=== PATIENT | female | born 1985 | race Caucasian/White ===

== ENCOUNTER 2020-11-02 01:22 | Emergency (ER) | payer SELFPAY ==
[~2020-11-02] VITALS: Ht 167.6 cm; Wt 62.6 kg
[2020-11-02 01:24] VITALS: BP 110/73
--- NOTE | 2020-11-02 01:33 | NUR ---
35 YO F BIB SELF WITH C/C OF ANXIETY X1 DAY. PT STATES SHE NEEDS A MED REFILL AND A REFERRAL TO A SPECIALIST. DENIES PAIN/DISCOMFORT. PT IS IN BED SITTING UP. BED LOCKED IN LOWEST POSITION. DENIES HX RX: ATIVAN 1 MG MENSTRUAL: 10/01
--- NOTE | 2020-11-02 01:48 | NUR ---
ERMD AT BEDSIDE.
[2020-11-02] MEDS ORDERED: LORazepam 1 MG TAB PO ONE (01:50)
[2020-11-02] MEDS ORDERED: LORA-476 PO (01:54)
[2020-11-02 01:58] VITALS: BP 110/73
== END 2020-11-02 01:58 | disposition home or self-care (01) ==
LOC: MED 01:22
DX: F41.9 Anxiety disorder, unspecified (principal); Z76.0 Encounter for issue of repeat prescription; Z88.6 Allergy status to analgesic agent
CPT/HCPCS: 99283